=== PATIENT | male | born 1990 | race Caucasian/White ===

== ENCOUNTER 2017-12-03 11:28 | Emergency (ER) | payer SELFPAY ==
[~2017-12-03] VITALS: Ht 167.6 cm; Wt 79.2 kg
[2017-12-03 11:57] LABS: HEMATOCRIT 45.5 % (38.0-50.0); HEMOGLOBIN 16.7 G/DL (12.5-16.6); MCHC 36.7 G/DL (30.0-36.0); MCV 81.8 FL (86-99); PLATELET COUNT 199 K/uL (156-360); RBC DIS.WIDTH-CV 11.4 % (11.8-14.6); RBC DIS.WIDTH-SD 33.9 % (39-53); RED BLOOD COUNT 5.56 M/uL (4.00-5.50); WHITE BLOOD COUNT 4.9 K/uL (4.1-10.2)
[2017-12-03 12:07] LABS: CHLORIDE 104 mEq/L (99-109); POTASSIUM 3.7 mEq/L (3.7-5.4); SODIUM 140 mEq/L (136-147)
[2017-12-03 12:08] LABS: GLUCOSE 110 mg/dL (70-99)
[2017-12-03 12:12] LABS: CREATININE 0.9 mg/dL (0.6-1.3); GFR ESTIMATE (CALCULATED) > 59 mL/min/ (58.99-99999)
[2017-12-03 12:13] LABS: UREA NITROGEN (BUN) 15 mg/dL (9-23)
[2017-12-03 13:21] VITALS: BP 109/68
== END 2017-12-03 13:42 | disposition home or self-care (01) ==
LOC: EME 11:28
PROVIDERS: Emergency Medicine Emergency Medical Services
DX: R55 Syncope and collapse (principal); S09.8XXA Other specified injuries of head, initial encounter; S00.03XA Contusion of scalp, initial encounter; W18.39XA Other fall on same level, initial encounter
CPT/HCPCS: 80048; 85027; 93005; 99281; 99284